=== PATIENT | female | born 1950 ===

== ENCOUNTER 2022-02-26 07:57 | Outpatient (REF) | payer MEDICARE, BC, SELFPAY ==
[2022-02-26 09:25] LABS: Alanine Aminotransferase 25 U/L (0-31); Albumin Level 4.6 g/dL (3.5-5.0); Alkaline Phosphatase 131 U/L (39-117); Anion Gap 17 (12-20); Aspartate Amino Transferase 27 U/L (5-31); Bilirubin Total 1.2 mg/dL (0.0-1.0); Blood Urea Nitrogen 18 mg/dL (9-16); Calcium 10.3 mg/dL (8.4-10.2); Carbon Dioxide 29 mmol/L (22-29); Chloride 88 mmol/L (96-108); Estimated Glomerular Filt Rate 54; Glucose Random 117 mg/dL (60-115); Potassium 4.5 mmol/L (3.3-5.1); Sodium 129 mmol/L (135-145); Total Protein 7.4 g/dL (6.5-8.0)
[2022-02-26 09:49] LABS: Cortisol Random 17.2 ug/dL
[2022-02-28 00:41] LABS: DHEA Sulfate 123 mcg/dL (4-157)
[2022-02-28 18:41] LABS: Adrenocorticotropic Hormone 21 pg/mL (6-50)
== END 2022-02-26 07:58 | disposition home or self-care (01) ==
LOC: HO.MANLDS 07:57
PROVIDERS: Visit Provider Physician Assistant
DX: E24.9 Cushing's syndrome, unspecified (principal)
CPT/HCPCS: 36415; 80053; 82024; 82533; 82627

== ENCOUNTER 2022-04-05 14:27 | Outpatient (REF) | payer MEDICARE, BC, SELFPAY ==
[2022-04-05 18:48] LABS: Alanine Aminotransferase 56 U/L (0-31); Albumin Level 4.5 g/dL (3.5-5.0); Alkaline Phosphatase 133 U/L (39-117); Anion Gap 18 (12-20); Aspartate Amino Transferase 40 U/L (5-31); Bilirubin Total 1.1 mg/dL (0.0-1.0); Blood Urea Nitrogen 21 mg/dL (9-16); Calcium 9.6 mg/dL (8.4-10.2); Carbon Dioxide 28 mmol/L (22-29); Chloride 98 mmol/L (96-108); Estimated Glomerular Filt Rate 58; Glucose Random 88 mg/dL (60-115); Potassium 4.1 mmol/L (3.3-5.1); Sodium 140 mmol/L (135-145); Total Protein 6.9 g/dL (6.5-8.0)
== END 2022-04-05 14:28 | disposition home or self-care (01) ==
LOC: HO.MANLDS 14:27
PROVIDERS: Visit Provider Physician Assistant
DX: E22.2 Syndrome of inappropriate secretion of antidiuretic hormone (principal)
CPT/HCPCS: 36415; 80053